=== PATIENT | female | born 1965 | race Caucasian/White ===

== ENCOUNTER 2022-05-04 10:50 | Inpatient (IN) ==
[2022-05-04] MEDS ORDERED: ADENOSINE IV SOLN 3 MG/ML 2 ML VIAL IV ONE (11:05)
[2022-05-04] MEDS ORDERED: ADENOSINE IV SOLN 3 MG/ML 2 ML VIAL IV STA (11:09)
[2022-05-04] MEDS ORDERED: ONDANSETRON INJ 2 MG/ML 2 ML VIAL IV STA (11:13)
[2022-05-04] MEDS ORDERED: ONDANSETRON INJ 2 MG/ML 2 ML VIAL ONE (11:13)
[2022-05-04] MEDS ORDERED: SODIUM CHLORIDE 0.9% 1000ML 1,000 ML IV SCH (11:15)
--- NOTE | 2022-05-04 11:26 | Emergency Department Note ---
Impression & Plan SVT (supraventricular tachycardia), Abdominal pain, epigastric, Elevated troponin I level, Abnormal EKG ED Provider Note NAME: JOSE L BRANDT AGE: 56 SEX: F : 1965 ARRIVES VIA: Walk-In INFORMANT: Patient, ED PROVIDER(S): Cristofer Oneal DO CHIEF COMPLAINT: Epigastric pain HPI: The patient is a 56-year-old female who presented to the emergency department for an evaluation of epigastric pain. The patient describes epigastr ic fullness and tightness. She states that the symptoms began over 24 hours ago. They have been waxing and waning. They seem to get worse and when she exercises or exerts her self. She is also noticed some palpitations. She recently had an upper respiratory tract infection which included a febrile illness. She did take a COVID swab and it was positive. She denies having any back pain. She did not see her family doctor for the symptoms. She does have a history of a fast heart rate at times but has never been this fast for this long. She denies having any recent trauma. She denies having any diarrhea but she has had some nausea. She is had no black or bloody bowel movements. ROS: See above HPI for pertinent positives & negatives. A total of 10 systems reviewed and were otherwise negative. PAST MEDICAL HISTORY: See Below PAST SURGICAL HISTORY: See Below FAMILY HISTORY: See Below SOCIAL HISTORY: See Below HOME MEDICATIONS: See Below ALLERGIES: See Below VITALS: See Below PHYSICAL EXAMINATION: GENERAL: Patient is awake alert in no acute distress patient is resting comfortably and showing no signs of anxiety EYES: The conjunctivae are clear. The pupils are round and reactive. EARS, NOSE, MOUTH AND THROAT: The nose is without any evidence of any deformity. Mucous membranes are moist. Tongue is midline. NECK: The neck is nontender and supple. RESPIRATORY: Normal respiratory effort is noted there is no evidence of wheezing rhonchi or rales CARDIOVASCULAR: Tachycardic and regular heart sounds were noted auscultation. There is no definite murmur. GASTROINTESTINAL: The abdomen is soft. Abdomen is nontender. MUSCULOSKELETAL/EXTREMITIES: There is no evidence of gross deformity full range of motion is noted in the hips and shoulders. SKIN: There is no obvious evidence of any rash. There are no petechiae, pallor or cyanosis noted. NEUROLOGIC: Patient is awake alert and oriented x3 MEDICAL DECISION MAKING: The patient is a 56-year-old female who presented to the emergency department with epigastric fullness. The patient was experiencing an SVT. She recently had a febrile illness and tested positive for COVID-19. She states that the symptoms began over 24 hours ago. When she was in triage she was noted to have hypotension. She was brought right back to the room and was then found to be in SVT. I evaluated the patient in room B6. Valsalva maneuver did not result in sinus rhythm so she was treated with IV fluids and adenosine. She did have resolution of the SVT but still had an abnormal EKG. I discussed patient's laboratory and radiographic studies with her. I discussed her condition with the on-call [facility]. They have agreed to evaluate the patient in the emergency department for further management and disposition. The patient had signs of pulmonary edema on chest x-ray. Her troponin was also elevated. It is possible this could represent an underlying myocarditis from the recently diagnosed febrile illness or its possible the patient was in the SVT for so long that she decompensated somewhat. Otherwise she is 56 years old and is in excellent health. She may require further cardiac work-up. Triage Nursing notes reviewed. Prior medical records reviewed Vital Signs: reviewed and remarkable for low blood pressure. Differential diagnosis: Premature contractions, electrolyte abnormality, cardiac dysrhythmia, thyroid dysfunction, pulmonary embolism, infection, gastrointestinal, as well as other pathologies. ER treatment provided: See below Diagnostics interpreted by me: ECG: EKG was obtained in the emergency department. My interpretation is narrow complex tachycardia at [address] and T wave abnormalities were noted. Low voltage was noted. No previous tracing was available. A second EKG was obtained after adenosine. My interpretation is normal sinus rhythm at 73 bpm. There was no ectopy. Nonspecific ST and T wave abnormalities were noted in the anterior and low lateral leads. No previous tracing was available. Cardiac Monitoring: An order was placed for continuous cardiac monitoring. The monitor shows a rate of 87 bpm with sinus rhythm. Laboratory studies: As stated above and show below. Imaging studies: See below Consultation(s): I discussed this case with Dr. Rivas is on-call for the [facility] group. ED COURSE: Procedures: Modified Valsalva maneuver was attempted x2. Critical Care: I have personally spent greater than 45 minutes of critical care time in the direct management of this patient. This includes bedside care, interpretation of diagnostic studies, and testing, discussion with consultants, patient, and family members, and other required patient management activities. This 45 minutes is in excess of all separately billable procedures. Past Med/Surg History Medical History Atypical ductal hyperplasia of breast Dyslipidemia Italo's thyroiditis Right patellofemoral syndrome Surgical History H/O bilateral breast implants H/O breast biopsy left breast x 2 prior to 2004-benign H/O: x 2 Family History Grandmother (Maternal) Breast cancer Father Hyperlipidemia Colorectal cancer Social History Smoking Status: Never smoker Preferred Language: Welsh Feels Safe at Home: Yes Allergies Allergies Allergy/AdvReac Type Severity Reaction Status Date / Time No Known Allergies Allergy Unverified 05/04/22 12:44 Results & Data (ED) Vital Signs Vital Signs - 24 hr 05/04/22 10:53 05/04/22 11:39 05/04/22 11:00 Temperature 37.1 C 37.0 C Temperature Source Temporal Artery Scan Oral Pulse Rate [Apical] 88 204 H Pulse Rhythm Regular Pulse Rhythm [Apical] Regular Pulse Strength Normal Pulse Strength [Apical] Normal Respiratory Rate 20 16 Respiratory Effort / Characteristics Non-Labored Spontaneous Non-Labored Spontaneous Respiratory Depth Normal Normal Respiratory Pattern Regular Regular Blood Pressure 75/62 L Blood Pressure [Right Arm] 91/74 L Blood Pressure Mean 66 Blood Pressure Mean [Right Arm] 79 Blood Pressure Position Sitting Blood Pressure Position [Right Arm] Semi-fowlers Pulse Oximetry 98 97 Oxygen Delivery Method Room Air Sepsis Recent Fever Within 48 Hours No Sepsis New/Unexplained Change in Mental Status No Sepsis Action Taken by Nursing No Action Required 05/04/22 13:00 Temperature Temperature Source Pulse Rate [Apical] 87 Pulse Rhythm Pulse Rhythm [Apical] Regular Pulse Strength Pulse Strength [Apical] Normal Respiratory Rate 17 Respiratory Effort / Characteristics Non-Labored Spontaneous Respiratory Depth Normal Respiratory Pattern Regular Blood Pressure Blood Pressure [Right Arm] 95/70 L Blood Pressure Mean Blood Pressure Mean [Right Arm] 78 Blood Pressure Position Blood Pressure Position [Right Arm] Semi-fowlers Pulse Oximetry 95 Oxygen Delivery Method Room Air Sepsis Recent Fever Within 48 Hours Sepsis New/Unexplained Change in Mental Status Sepsis Action Taken by Usp Medications Current Medication List: was personally reviewed by me Laboratory Data Attestation: I reviewed the patient's lab results. Result diagrams: 05/04/22 11:05 05/04/22 11:05 Lab Results 05/04/22 05/04/22 05/04/22 Range/Units 11:05 11:05 11:05 WBC 15.87 H (4.8-10.8) K/ul RBC 4.63 (3.93-5.22) M/uL Hgb 14.2 (12.0-16.0) g/dl Hct 41.5 (34.1-44.9) % MCV 89.6 (80.0-100.0) fL MCH 30.7 (25.0-34.0) pg MCHC 34.2 (32.0-36.0) g/dL RDW Std Deviation 37.9 (36.4-46.3) fL RDW Coeff of Jason 11.8 (11.5-14.5) % Plt Count 419 H (130-400) K/uL MPV 9.6 (9.4-12.3) fL Immature Gran % (Auto) 0.5 % Neut % (Auto) 76.7 % Lymph % (Auto) 16.6 % Davis % (Auto) 5.7 % Eos % (Auto) 0.2 % Baso % (Auto) 0.3 % Neut # (Auto) 12.17 H (1.4-6.5) K/uL Lymph # (Auto) 2.63 (1.2-3.4) K/uL Davis # (Auto) 0.91 H (0.24-0.82) K/uL Eos # (Auto) 0.03 (0-0.50) K/uL Baso # (Auto) 0.05 (0-0.2) K/uL Immature Gran # (Auto) 0.08 H (0.00-0.02) K/uL PT 10.8 (9.0-12.0) Seconds INR 1.0 (0.9-1.1) APTT 26.1 (21.0-31.0) Seconds PTT Ratio 0.9 Sodium 136 (136-145) mmol/L Potassium 3.6 (3.5-5.1) mmol/L Chloride 100 (98-107) mmol/L Carbon Dioxide 26 (21-32) mmol/L Anion Gap 10 (3-11) BUN 16 (6-23) mg/dl Creatinine 0.89 (0.6-1.2) mg/dl Est Cr Clr Drug Dosing 56.5 ml/min Est GFR ( Amer) 84.6 ml/min Est GFR (Non-Af Amer) 73.0 ml/min BUN/Creatinine Ratio 18.0 (10-20) Glucose 140 H (70-99(Fasting)) mg/dl Calcium 9.3 (8.5-10.1) mg/dl Magnesium 2.0 (1.7-2.4) mg/dl Total Bilirubin 0.9 (0.2-1.0) mg/dl AST 118 H (13-39) U/L ALT 212 H (7-52) U/L Alkaline Phosphatase 124 H (34-104) U/L Troponin I High Sens 232.3 H* (0-14) pg/ml Total Protein 7.4 (6.0-8.3) gm/dl Albumin 4.3 (3.4-5.0) gm/dl Globulin 3.1 (2.5-4.0) gm/dl Albumin/Globulin Ratio 1.4 (0.9-2) TSH (0.300-4.500) uIu/ml 05/04/22 Range/Units 11:05 WBC (4.8-10.8) K/ul RBC (3.93-5.22) M/uL Hgb (12.0-16.0) g/dl Hct (34.1-44.9) % MCV (80.0-100.0) fL MCH (25.0-34.0) pg MCHC (32.0-36.0) g/dL RDW Std Deviation (36.4-46.3) fL RDW Coeff of Jason (11.5-14.5) % Plt Count (130-400) K/uL MPV (9.4-12.3) fL Immature Gran % (Auto) % Neut % (Auto) % Lymph % (Auto) % Davis % (Auto) % Eos % (Auto) % Baso % (Auto) % Neut # (Auto) (1.4-6.5) K/uL Lymph # (Auto) (1.2-3.4) K/uL Davis # (Auto) (0.24-0.82) K/uL Eos # (Auto) (0-0.50) K/uL Baso # (Auto) (0-0.2) K/uL Immature Gran # (Auto) (0.00-0.02) K/uL PT (9.0-12.0) Seconds INR (0.9-1.1) APTT (21.0-31.0) Seconds PTT Ratio Sodium (136-145) mmol/L Potassium (3.5-5.1) mmol/L Chloride (98-107) mmol/L Carbon Dioxide (21-32) mmol/L Anion Gap (3-11) BUN (6-23) mg/dl Creatinine (0.6-1.2) mg/dl Est Cr Clr Drug Dosing ml/min Est GFR ( Amer) ml/min Est GFR (Non-Af Amer) ml/min BUN/Creatinine Ratio (10-20) Glucose (70-99(Fasting)) mg/dl Calcium (8.5-10.1) mg/dl Magnesium (1.7-2.4) mg/dl Total Bilirubin (0.2-1.0) mg/dl AST (13-39) U/L ALT (7-52) U/L Alkaline Phosphatase (34-104) U/L Troponin I High Sens (0-14) pg/ml Total Protein (6.0-8.3) gm/dl Albumin (3.4-5.0) gm/dl Globulin (2.5-4.0) gm/dl Albumin/Globulin Ratio (0.9-2) TSH 0.606 (0.300-4.500) uIu/ml Administered Medications Discontinued Medications Adenosine (Adenosine Iv Soln 3 Mg/Ml 2 Ml Vial) Confirm Administered Dose 12 mg IV .muzu tv-MED ONE Stop: 05/04/22 11:06 Last Admin: 05/04/22 11:11 Dose: 6 mg Documented By: NA Adenosine (Adenosine Iv Soln 3 Mg/Ml 2 Ml Vial) 6 mg IV NOW STA Stop: 05/04/22 11:10 Last Admin: 05/04/22 11:31 Dose: Not Given Documented By: NA Sodium Chloride (Nss 1000ml) 1,000 mls @ 999 mls/hr IV .Q1H1M TOMA Stop: 05/04/22 12:15 Last Infusion: 05/04/22 12:14 Dose: 0 mls/hr Documented By: Admin: 05/04/22 11:11 Dose: 999 mls/hr Documented By: KD Ondansetron HCl (Ondansetron Inj 2 Mg/Ml 2 Ml Vial) Confirm Administered Dose 4 mg .ROUTE .STK-MED ONE Stop: 05/04/22 11:14 Last Admin: 05/04/22 11:16 Dose: 4 mg Documented By: KD Ondansetron HCl (Ondansetron Inj 2 Mg/Ml 2 Ml Vial) 4 mg IV NOW STA Stop: 05/04/22 11:14 Last Admin: 05/04/22 11:32 Dose: Not Given Documented By: NA Imaging Data Radiologist's Impression: Chest X-Ray 05/04/22 11:10 XR chest 1V portable HISTORY: 56 years-old Female weakness acute weakness COMPARISON: None TECHNIQUE: AP view of the chest FINDINGS: Cardiac silhouette is mildly enlarged. Pulmonary vascular congestion. Trace pleural effusions with mild interstitial coarsening. No pneumothorax or lobar airspace consolidation. Bones appear grossly intact. IMPRESSION: 1. Cardiomegaly with pulmonary vascular congestion and questioned mild pulmonary edema. 2. Trace pleural effusions. ACT 112: Negative or not required by law. The above report was generated using voice recognition software. It may contain grammatical, syntax or spelling errors. Electronically signed by: Moo Holt M.D. 05/04/2022 11:59 AM Discharge Plan Visit Data Chief Complaint: Abdominal Pain Stated Complaint: ABD PAIN, BLOATING ED Provider: Cristofer Oneal Discharge Problem: SVT (supraventricular tachycardia), Abdominal pain, epigastric, Elevated troponin I level, Abnormal EKG Patient Disposition: Being Evaluated by Hospitalist Forms Stand Alone Forms: [facility] Referrals Referrals: PCP,NO [Primary Care Provider] -
[2022-05-04 11:32] LABS: Basophils # (auto) 0.05 K/uL (0-0.2); Basophils % (auto) 0.3 %; Eosinophils # (auto) 0.03 K/uL (0-0.50); Eosinophils % (auto) 0.2 %; Hematocrit (blood only) 41.5 % (34.1-44.9); Hemoglobin 14.2 g/dl (12.0-16.0); Immature Granulocytes # (auto) 0.08 K/uL (0.00-0.02); Immature Granulocytes % (auto) 0.5 %; Lymphocytes # (auto) 2.63 K/uL (1.2-3.4); Lymphocytes % (auto) 16.6 %; Mean Corpuscular Hemoglobin 30.7 pg (25.0-34.0); Mean Corpuscular Hgb Conc 34.2 g/dL (32.0-36.0); Mean Corpuscular Volume 89.6 fL (80.0-100.0); Mean Platelet Volume 9.6 fL (9.4-12.3); Monocytes # (auto) 0.91 K/uL (0.24-0.82); Monocytes % (auto) 5.7 %; Neutrophils # (auto) 12.17 K/uL (1.4-6.5); Neutrophils % (auto) 76.7 %; Platelet Count 419 K/uL (130-400); RDW Coefficient of Variation 11.8 % (11.5-14.5); RDW Standard Deviation 37.9 fL (36.4-46.3); Red Blood Count 4.63 M/uL (3.93-5.22); White Blood Count 15.87 K/ul (4.8-10.8)
[2022-05-04 11:46] LABS: Partial Thromboplastin Ratio 0.9; Partial Thromboplastin Time 26.1 Seconds (21.0-31.0); Prothrombin Time 10.8 Seconds (9.0-12.0)
[2022-05-04 11:57] LABS: Albumin Globulin Ratio 1.4 (0.9-2); Albumin Level 4.3 gm/dl (3.4-5.0); Bilirubin,Total 0.9 mg/dl (0.2-1.0); Calcium 9.3 mg/dl (8.5-10.1); Creatinine Clr Calc Pharmacy 56.5 ml/min; Est GFR (African American) 84.6 ml/min; Globulin 3.1 gm/dl (2.5-4.0); Potassium 3.6 mmol/L (3.5-5.1); Total Protein 7.4 gm/dl (6.0-8.3)
--- NOTE | 2022-05-04 12:00 | XRay Report ---
XR chest 1V portable HISTORY: 56 years-old Female weakness acute weakness COMPARISON: None TECHNIQUE: AP view of the chest FINDINGS: Cardiac silhouette is mildly enlarged. Pulmonary vascular congestion. Trace pleural effusions with mi ld interstitial coarsening. No pneumothorax or lobar airspace consolidation. Bones appear grossly int act. IMPRESSION: 1. Cardiomegaly with pulmonary vascular congestion and questioned mild pulmonary edema. 2. Trace pleural effusions. ACT 112: Negative or not required by law. The above report was generated using voice recognition software. It may contain grammatical, syntax o r spelling errors. Electronically signed by: Moo Holt M.D. 05/04/2022 11:59 AM
[2022-05-04 12:16] LABS: Troponin I High Sensitivity 232.3 pg/ml (0-14)
--- NOTE | 2022-05-04 12:26 | Electrocardiogram Report ---
Test Reason : Blood Pressure : / mmHG Vent. Rate : 204 BPM Atrial Rate : 202 BPM P-R Int : 000 ms QRS Dur : 072 ms QT Int : 218 ms P-R-T Axes : 000 039 218 degrees QTc Int : 401 ms Supraventricular tachycardia Low voltage QRS Cannot rule out Old Septal infarct Diffuse Nonspecific ST and T wave abnormality (may be rate related) Abnormal ECG No previous ECGs available Confirmed by Girish Joseph ([id number]) on 05/04/2022 12:25:32 PM Referred By: Confirmed By:Girish Joseph
--- NOTE | 2022-05-04 12:27 | Electrocardiogram Report ---
Test Reason : Blood Pressure : / mmHG Vent. Rate : 073 BPM Atrial Rate : 073 BPM P-R Int : 174 ms QRS Dur : 066 ms QT Int : 386 ms P-R-T Axes : 067 047 076 degrees QTc Int : 425 ms Normal sinus rhythm Left atrial enlargement Low voltage QRS Diffuse Nonspecific ST and T wave abnormality Abnormal ECG When compared with ECG of 04-MAY-2022 11:02, Vent. rate has decreased BY 131 BPM Confirmed by Girish Joseph ([id number]) on 05/04/2022 12:27:20 PM Referred By: Confirmed By:Girish Joseph
--- NOTE | 2022-05-04 12:49 | History & Physical Report ---
Date of Service May 04, 2022 Assessment & Plan (1) Abdominal pain, epigastric: Plan: Acute onset epigastric discomfort in the setting of active covid-19 infection. She does report some food intolerance and vomiting yesterday. Was able to keep soup down last night and this am. Cont supportive care efforts with clears, antiemetics as needed. Elevated LFTs may be a result of active covid infection. She is not currently on a statin and does not drink ETOH. With this and discomfort, will investigate further with a RUQ US to rule out obstructive physiology, and will trend LFTs in am. (2) SVT (supraventricular tachycardia): Plan: History of SVT that was undiagnosed until today. She broke into sinus rhythm with one dose of adenosine in the ER. 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 Will order echo and cardiology consult. Cont monitoring on telemetry overnight. (3) Elevated troponin I level: Plan: Likely a result of ongoing SVT for the past 24 hours reflecting a demand ischemia. Patient does have risk factors for CAD including dyslipidemia. She was taken off simvastatin in the past. No current chest pain. Will trend trop and order echo. (4) Elevated transaminase level: Plan: likely from covid infection, however, it is concerning that she has discomfort in the RUQ/epigastric region. Liver US and repeat LFTs in am. (5) Italo's thyroiditis: Plan: TSH at goal. This is typically subclinical and she is not on medications for this issue. (6) COVID-19: Plan: no evidence of hypoxia. Generalized malaise, poor appetite and fever with cough all present. Cont supportive care efforts. DVT proph: Lovenox Full Code Dispo- to PCU. Diana Rivas DO [facility] Hospitalist History of Present Illness Chief Complaint: abdominal fullness Primary Care Provider: NO PCP 56 yo F presented with abdominal fullness. She was slightly hypotensive so was triaged back to the ER and given some IVF. An EKG revealed that she was in rapid SVT with a HR of 200bpm. This broke with one dose of adenosine 6mg IV and subsequently her abdominal fullness improved somewhat. Elevated troponin and leukocytosis was present on labwork. CXR with questionable mild pulmonary edema but patient denies any shortness of breath. She had a big work project that came to a close last week, other coworkers were sick with covid--symptoms for her began on Monday. Took home test on Monday and was positive. Low energy, runny nose and "sinus stuff" on sat/sun/mon. "I don't like medications and generally feel overmedicated when I take things." Was using Nyquil and DayQuil OTC. Decreased appetite over the past two days, had cereal yesterday and vomited. Piece of toast wasn't working either. Soup was ok. No fevers, chills. +cough, productive. No SOB, +burping more than usual, no more nasal congestion. No diarrhea or constipation. Abdominal discomfort "feels like someone has a boot on my sternum" and reports bloating. Last BM was this am and described as pellets. Feels like I have an air bubble in my stomach. The abdominal pain has gone away now. Reports that her heart has been racing intermittently for several years; she blamed it on anxiety and could control it with breathing. Denies any symptoms with palpitations in the past such as no chest pain or significant shortness of breath. Wore a holter in the past and did a stress test which was unrevealing per her report. She was an avid runner at the time of the workup including- running 4 miles per day. She reports not running in the past 3 years. Palpitations occur twice per year. Takes some vitamins but no medications. Allergies Allergy/AdvReac Type Severity Reaction Status Date / Time No Known Allergies Allergy Unverified 05/04/22 12:44 Past Med/Surg History Medical History (Updated 05/04/22 @ 14:56 by Diana Rivas DO) Atypical ductal hyperplasia of breast Dyslipidemia Italo's thyroiditis Palpitations Right patellofemoral syndrome Surgical History H/O bilateral breast implants H/O breast biopsy left breast x 2 prior to 2004-benign H/O: x 2 Family History Grandmother (Maternal) Breast cancer Father Hyperlipidemia Colorectal cancer Social History Smoking Status: Never smoker Hx Alcohol Use: No Hx Substance Use: No Preferred Language: Afghan Feels Safe at Home: Yes Review of Systems Review of Systems: All systems were reviewed and negative except as indicated on HPI above. Physical Exam Physical Exam: CONSTITUTIONAL: WNWD, vitals as above, generally well- appearing, NAD EYES: pupils were round and equal bilaterally, normal conjunctivae, no scleral icterus ENT: external ear and nose normal, oropharynx clear, mucous membranes moist, no sinus TTP. NECK: trachea midline, enlarged submandibular lymph nodes that are tender to palpation and slightly more enlarged on left>right. RESPIRATORY: clear to auscultation bilaterally, no crackles, rales or wheezes, normal respiratory effort CARDIOVASCULAR: regular rate and rhythm, S1 and 2 heard without murmurs, gallops or rubs, no JVD, no peripheral edema CHEST: inspection of chest was normal GASTROINTESTINAL: soft, mild RUQ and epigastric fullness with tenderness to palpation, no guarding. MUSCULOSKELETAL: strength 5/5 throughout, head is normocephalic and atraumatic SKIN: warm and dry NEUROLOGIC: CN 2-12 grossly intact, no sensory deficit, normal cognition, normal speech, no tremor PSYCHIATRIC: alert cooperative and oriented to person, place and time. Euthymic mood, makes good eye contact, language grossly intact, recent and remote memory grossly intact. Results & Data Results & Data ([facility]) Vital Signs (Past 12 Hours) Vital Signs Temp Pulse Resp BP BP Pulse Ox O2 Del Method 05/04/22 11:00 204 H 05/04/22 11:39 37.0 C 88 16 91/74 L 97 Room Air 05/04/22 10:53 37.1 C 20 75/62 L 98 Laboratory Results Short CBC 05/04/22 Range/Units 11:05 WBC 15.87 H (4.8-10.8) K/ul Hgb 14.2 (12.0-16.0) g/dl Hct 41.5 (34.1-44.9) % Plt Count 419 H (130-400) K/uL BMP 05/04/22 11:05 Sodium 136 Potassium 3.6 Chloride 100 Carbon Dioxide 26 BUN 16 Creatinine 0.89 Glucose 140 H Calcium 9.3 Liver Function 05/04/22 Range/Units 11:05 Total Bilirubin 0.9 (0.2-1.0) mg/dl AST 118 H (13-39) U/L ALT 212 H (7-52) U/L Alkaline Phosphatase 124 H (34-104) U/L Albumin 4.3 (3.4-5.0) gm/dl Diagnostic Findings Chest X-Ray 05/04/22 11:10 XR chest 1V portable HISTORY: 56 years-old Female weakness acute weakness COMPARISON: None TECHNIQUE: AP view of the chest FINDINGS: Cardiac silhouette is mildly enlarged. Pulmonary vascular congestion. Trace pleural effusions with mild interstitial coarsening. No pneumothorax or lobar airspace consolidation. Bones appear grossly intact. IMPRESSION: 1. Cardiomegaly with pulmonary vascular congestion and questioned mild pulmonary edema. 2. Trace pleural effusions. ACT 112: Negative or not required by law. The above report was generated using voice recognition software. It may contain grammatical, syntax or spelling errors. Electronically signed by: Moo Holt M.D. 05/04/2022 11:59 AM Code Status & VTE Plan VTE Prophylaxis Plan VTE Prophylaxis will be ordered: Yes
[2022-05-04 13:11] LABS: Influenza A virus by PCR Negative (Neg); Influenza B virus by PCR Negative (Neg); RSV by PCR Negative (Neg)
[2022-05-04 13:26] LABS: SARS CoV2 RNA(COVID-19) Ceph POSITIVE (Negative)
[2022-05-04] MEDS ORDERED: PROMETHAZINE HCL 25 MG TAB PO PRN (15:29)
[2022-05-04] MEDS ORDERED: ACETAMINOPHEN 325 MG TAB PO PRN (15:29)
[2022-05-04] MEDS ORDERED: POLYETHYLENE (MIRALAX) 17 GM PACK PO PRN (15:29)
[2022-05-04 16:37] LABS: Troponin I High Sensitivity 476.3 pg/ml (0-14)
[2022-05-04] MEDS: SODIUM CHLORIDE 0.9% 1000ML 1,000 ML IV SCH (16:40)
[2022-05-04] MEDS: ENOXAPARIN INJ 30 MG/0.3 ML SYR SQ SCH (16:51)
[2022-05-04] MEDS: FLUTICASONE PROPIONATE NA SPR 16 GM BTL NAE SCH (16:52)
[2022-05-04 17:27] LABS: Appearance Urine Clear (Clear); Bilirubin Urine Negative (Negative); Blood Urine Negative (Negative); Color Urine Yellow; Glucose Urine UA Negative (Negative); Ketones Urine Negative (Negative); Leukocyte Esterase Urine Negative (Negative); Nitrite Urine Negative (Negative); Protein Urine Negative (Negative); Specific Gravity Urine 1.006 (1.000-1.030); Urobilinogen Urine Negative (Negative)
[2022-05-04] MEDS: guaiFENesin SUGAR FREE 100 MG/5 ML UDC PO PRN (18:11)
[2022-05-05] MEDS: guaiFENesin SUGAR FREE 100 MG/5 ML UDC PO PRN (03:24)
[2022-05-05] MEDS: SODIUM CHLORIDE 0.9% 1000ML 1,000 ML IV SCH (05:54)
[2022-05-05 07:29] LABS: Basophils # (auto) 0.03 K/uL (0-0.2); Basophils % (auto) 0.4 %; Eosinophils # (auto) 0.14 K/uL (0-0.50); Eosinophils % (auto) 1.9 %; Hematocrit (blood only) 30.7 % (34.1-44.9); Hemoglobin 10.7 g/dl (12.0-16.0); Immature Granulocytes # (auto) 0.03 K/uL (0.00-0.02); Immature Granulocytes % (auto) 0.4 %; Lymphocytes # (auto) 1.75 K/uL (1.2-3.4); Lymphocytes % (auto) 24.3 %; Mean Corpuscular Hemoglobin 31.4 pg (25.0-34.0); Mean Corpuscular Hgb Conc 34.9 g/dL (32.0-36.0); Mean Platelet Volume 9.2 fL (9.4-12.3); Monocytes # (auto) 0.45 K/uL (0.24-0.82); Monocytes % (auto) 6.3 %; Neutrophils % (auto) 66.7 %; Platelet Count 263 K/uL (130-400); RDW Coefficient of Variation 11.8 % (11.5-14.5); RDW Standard Deviation 38.4 fL (36.4-46.3); Red Blood Count 3.41 M/uL (3.93-5.22)
[2022-05-05 07:45] LABS: Albumin Level 3.2 gm/dl (3.4-5.0); BUN Creatinine Ratio 17.3 (10-20); Bilirubin Direct 0.1 mg/dl (0-0.2); Bilirubin,Total 0.7 mg/dl (0.2-1.0); Calcium 7.8 mg/dl (8.5-10.1); Creatinine Clr Calc Pharmacy 67.1 ml/min; Est GFR (Non-African American) 89.7 ml/min; Potassium 3.5 mmol/L (3.5-5.1); Total Protein 5.9 gm/dl (6.0-8.3)
[2022-05-05] MEDS: FLUTICASONE PROPIONATE NA SPR 16 GM BTL NAE SCH (07:49)
--- NOTE | 2022-05-05 07:56 | Ultrasound Report ---
US liver HISTORY: 56 years-old Female elevated transaminase/abd discomfort elevated LFTs. COMPARISON: Chest radiograph 05/04/2022 TECHNIQUE: Multiple real-time sonographic images of the abdominal right upper quadrant were obtained assessing grayscale appearance and color flow FINDINGS: The visualized pancreas is unremarkable. Normal common bile duct, 4 mm. The liver is within normal li mits measuring up to 15 cm in length. No hepatic mass identified. Unremarkable gallbladder. The right kidney is within normal limits without hydronephrosis. Incidental note is made of a trace r ight pleural effusion. IMPRESSION: 1. Unremarkable right upper quadrant abdominal ultrasound. 2. Incidental note is made of a trace right pleural effusion. ACT 112: Negative or not required by law. The above report was generated using voice recognition software. It may contain grammatical, syntax o r spelling errors. Electronically signed by: Moo Holt M.D. 05/05/2022 7:54 AM
--- NOTE | 2022-05-05 08:41 | Electrocardiogram Report ---
Test Reason : Blood Pressure : / mmHG Vent. Rate : 084 BPM Atrial Rate : 084 BPM P-R Int : 158 ms QRS Dur : 076 ms QT Int : 394 ms P-R-T Axes : 026 030 036 degrees QTc Int : 465 ms Normal sinus rhythm Low voltage QRS Poor R wave progression, consider anterior PA vs. lead placement vs. LVH T wave abnormality, consider lateral ischemia Abnormal ECG When compared with ECG of 04-MAY-2022 11:16, T wave inversion now evident in Lateral leads Confirmed by Girish Joseph ([id number]) on 05/05/2022 8:41:35 AM Referred By: REFERRED SELF Confirmed By:Girish Joseph
--- NOTE | 2022-05-05 08:44 | Electrocardiogram Report ---
Test Reason : Blood Pressure : / mmHG Vent. Rate : 083 BPM Atrial Rate : 083 BPM P-R Int : 158 ms QRS Dur : 072 ms QT Int : 400 ms P-R-T Axes : 022 040 041 degrees QTc Int : 470 ms Normal sinus rhythm Low voltage QRS Borderline Criteria for Septal infarct Abnormal ECG When compared with ECG of 04-MAY-2022 17:55, Borderline Criteria for Septal infarct now present Otherwise no significant change Confirmed by Girish Joseph ([id number]) on 05/05/2022 8:43:53 AM Referred By: REFERRED SELF Confirmed By:Girish Joseph
--- NOTE | 2022-05-05 08:44 | Electrocardiogram Report ---
Test Reason : Blood Pressure : / mmHG Vent. Rate : 080 BPM Atrial Rate : 080 BPM P-R Int : 162 ms QRS Dur : 074 ms QT Int : 406 ms P-R-T Axes : 021 038 -16 degrees QTc Int : 468 ms Normal sinus rhythm Low voltage QRS Borderline Criteria for Septal infarct (cited on or before 04-MAY-2022) Abnormal ECG When compared with ECG of 04-MAY-2022 23:19, No significant change Confirmed by Girish Joseph ([id number]) on 05/05/2022 8:44:40 AM Referred By: REFERRED SELF Confirmed By:Girish Joseph
--- NOTE | 2022-05-05 12:35 | Cardiology Consultation ---
Date of Consultation May 05, 2022 Assessment & Plan (1) SVT (supraventricular tachycardia): (2) Elevated troponin I level: (3) Abnormal EKG: (4) COVID-19: Plan SVT in the setting of covid 19 infection along with epigastric pain, nausea and vomiting this is likely a self-limiting arrhythmia and will resolve with supportive care would hold off on addition of beta dale at this time unless recurrence of SVT. follow and replete lytes as necessary cont to monitor on tele while inpatient elevated trop level likely due to sustained SVT will also obtain 2D echocardiogram History of Present Illness Reason for Consultation: SVT Requesting Physician: AMBREEN Attending Physician: Lázaro Dee MD History of Present Illness Ms. Goldstein is a pleasant 56 yo woman who presented to [facility] ER on 05/04/22 with complaints of abdominal pain, nausea, vomiting and palpitations. She reports multiple sick contacts at work along with positive home Covid 19 test. Upon presentation to the ER was found to be tachycardic and slightly hypotensive. EKG revealed SVT at 200 bpm which broke with a single dose of adenosine. In order to limit staff exposure to COVID 19, consultation conducted by review of medical records and telemetry review. Allergies Allergy/AdvReac Type Severity Reaction Status Date / Time No Known Allergies Allergy Verified 05/04/22 15:14 Home Medications Medication Instructions Recorded Confirmed Type Body [place] Multivitamin 1 dose PO DAILY 05/04/22 05/04/22 History ascorbic acid (vitamin C) 1,000 mg 0 g PO DAILY 05/04/22 05/04/22 History tablet (Vitamin C) doxylamine 6.25 mg-PE 5 mg-DM 10 2 tab PO DIRECTED PRN Cold 05/04/22 05/04/22 History mg-acetaminophen 325 mg tablet Symptoms (Vicks NyQuil Severe Cold-Flu) [id number] 2 tab PO DIRECTED PRN Cold 05/04/22 05/04/22 History 5 mg-10 mg-325 mg-200 mg tablet Symptoms (Tylenol Cold and Flu Severe) Patient History Medical History Atypical ductal hyperplasia of breast Dyslipidemia Italo's thyroiditis Palpitations Right patellofemoral syndrome Surgical History H/O bilateral breast implants H/O breast biopsy left breast x 2 prior to 2005-benign H/O: x 2 Family History Grandmother (Maternal) Breast cancer Father Hyperlipidemia Colorectal cancer Social History Smoking Status: Never smoker Hx Alcohol Use: No Hx Substance Use: No Preferred Language: Maltese Communication Ability: Effective Coil Winder Strap Required: No Beliefs That Will Affect Care: None Current Living Situation: Spouse Other Information That Helps Us Care for You: No Feels Safe at Home: Yes Safety Concerns: Feels Safe At This Time Assistive Devices: None Results & Data ([facility]) Vital Signs (Past 12 Hours) Vital Signs Temp Pulse Resp BP Pulse Ox O2 Del Method 05/05/22 11:50 36.4 C L 75 16 109/76 95 Room Air 05/05/22 03:42 37.0 C 83 18 95/67 L 92 Room Air
--- NOTE | 2022-05-05 12:55 | Hospitalist Progress Note ---
Date of Service May 05, 2022 Assessment & Plan (1) Abdominal pain, epigastric: Plan: Per Dr. Rivas's notes with addendum: Acute onset epigastric discomfort in the setting of active covid-19 infection. She does report some food intolerance and vomiting yesterday. Was able to keep soup down last night and this am. Cont supportive care efforts with clears, antiemetics as needed. Elevated LFTs may be a result of active covid infection. She is not currently on a statin and does not drink ETOH. With this and discomfort, will investigate further with a RUQ US to rule out obstructive physiology, and will trend LFTs in am. 05/05 LFTs trending down Liver ultrasound: Unremarkable (2) SVT (supraventricular tachycardia): Plan: History of SVT that was undiagnosed until today. She broke into sinus rhythm with one dose of adenosine in the ER. Has not seen a pump tender in the past. Will order echo and cardiology consult. Cont monitoring on telemetry overnight. --No recurrence overnight Echocardiogram pending Cardiology service consulted, awaiting recommendation (3) Elevated troponin I level: Plan: Likely a result of ongoing SVT for the past 24 hours reflecting a demand ischemia. Patient does have risk factors for CAD including dyslipidemia. She was taken off simvastatin in the past. No current chest pain. Will trend trop and order echo. Troponins trending down Likely secondary to demand ischemia from SVT episode (4) Elevated transaminase level: Plan: likely from covid infection, however, it is concerning that she has discomfort in the RUQ/epigastric region. Liver US and repeat LFTs in am. Trending down Liver ultrasound unremarkable (5) Italo's thyroiditis: Plan: TSH at goal. This is typically subclinical and she is not on medications for this issue. (6) COVID-19: Plan: no evidence of hypoxia. Generalized malaise, poor appetite and fever with cough all present. Cont supportive care efforts. DVT proph: Lovenox Full Code Dispo- to PCU. Admission and Anticipated Discharge Date Admission Date: May 04, 2022 Subjective Follow-up for COVID-19 infection, etc. Seen resting in bed, sitting up, not in distress, good spirits States she feels a lot better compared to yesterday Denies shortness of breath, chest pain, still has intermittent dry cough No palpitations, dizziness Ambulating in the room with no problems No other symptoms Review of Systems Review of Systems: all noted and negative except for above Physical Exam Physical Exam: General- oriented x 3, not in distress, speaks in sentences with no effort or accessory muscle use Eyes- anicteric Neck- no JVD Lungs- clear breath sounds bilaterally, no rales/wheezes Heart- normal rate, regular rhythm; no murmurs Abdomen- normal bowel sounds, nondistended, soft, nontender Extremities- no pretibial edema, no calf tenderness Neuro- alert, oriented x 3; no gross focal neurologic deficits Skin- warm & dry Results & Data Results & Data ([facility]) Vital Signs (Past 12 Hours) Vital Signs Temp Pulse Resp BP Pulse Ox O2 Del Method 05/05/22 11:50 36.4 C L 75 16 109/76 95 Room Air 05/05/22 03:42 37.0 C 83 18 95/67 L 92 Room Air all noted and reviewed including below
[2022-05-05] MEDS: ENOXAPARIN INJ 30 MG/0.3 ML SYR SQ SCH (16:04)
== END 2022-05-05 17:55 | disposition home or self-care (01) | DRG 178 ==
LOC: ED 10:50 → 2E 12:41 → SUATTDRO 12:41 → 2E 14:57